=== PATIENT | male | born 1940 | race Caucasian/White ===

== ENCOUNTER 2016-05-20 09:36 | Day surgery (SDC) | payer MEDICARE ==
[~2016-05-20] VITALS: Ht 200.7 cm; Wt 118.8 kg
[2016-05-20] VITALS (10 sets, daily range): BP systolic 116–133; BP diastolic 68–85; PULSE 56–69; RESP 8–16; O2SAT 88–98
[~2016-05-20 09:36] MED LIST: ALBU8.5H2 INHALATION; BENZ-12 PO; CARB-182 AFFECT_EAR; CeFAZolin Inj 3 GM in IV Premix IV ONE; DIPH1TAB PO; GABA-502 PO; INSLIS SUBQ; INSU100I13 SUBQ; LEVO100T6 PO; LIDO700A6 TP; METF1000 PO; METO25TA6 PO; NITR0.4T6 SL; PANT40TA3 PO; SIMV40TA5 PO; TAMS0.4C98 PO
[2016-05-20] MEDS ORDERED: Dexamethasone 4 mg/mL Inj ONE (09:37)
[2016-05-20] MEDS ORDERED: fentaNYL-PF 50 mCg/mL 2 mL Inj ONE (09:37)
[2016-05-20] MEDS ORDERED: Propofol 10,000 mCg/mL 20 mL Inj ONE (09:37)
[2016-05-20] MEDS ORDERED: Ondansetron 2 mg/mL 2 mL Inj ONE (09:37)
[2016-05-20] MEDS: Lactated Ringer's 1,000 ML IV SCH ×2 (09:44→12:00)
--- NOTE | 2016-05-20 10:27 | PCM.HPANE ---
Patient Data Surgeon Admitting Provider: Attending Provider:Stanton Reyes DPM Primary Care Physician:Santiago Yap MD Other Provider:Mitch De La Paz Anesthesia Reason for Visit Right Foot Hammer Toe Ht/WT & BMI Height (Feet): 6 Height (Inches): 7 Weight (Kilograms): 118.8 Body Mass Index 29.00 Allergies Coded Allergies: phenazopyridine (Verified Allergy, Severe, Rash, 08/04/15) Past Anesthesia History Anesthesia History: Denies:: Abnormal Airway, Anesthesia Reactions, Difficult Intubation, Fam Anesthesia Reaction, Fam Malignant Hypertherm, Malignant Hyperthermia Diabetes History Hx Diabetes?: Yes Type of Diabetes: Type II Glycemic Control: Insulin & Oral Medication Current Bedside Blood Glucose: 160 MRSA MRSA: No Medications Blood Thinner: Aspirin Hypertension Medication: Yes Home Meds Incl Beta Yesy: Yes Date Beta Yesy Taken: May 19, 2016 (1999) Time Beta Yesy Taken: 20:00 Reported Medications Albuterol HFA (Proair HFA)8.5 Gm Hfa.aer.ad2 Puffs INHALATION Q4H #1 INHALER 05/17/16 Insulin Human Lispro (HumaLOG U100 Insulin Vial)100 Unit/Ml Unit1 Unit SUBQ DIRECTED PRN DM #1 VIAL Ref 0 Check blood sugars before meals and at bedtime. Use correction factor only before meals. Blood Sugar Lispro Correction: <151, 0 units; 151-175, 1 unit; 176-200, 2 units; 201-225, 3 units; 226-250, 4 units; 251-275, 5 units; 276-300, 6 units; 301-325, 7 units; 326-350, 8 units; 351-375, 9 units; 376-400, 10 units; >400, 12 units. 08/05/15 Benzonatate (Tessalon Perle)100 Mg Kpyiflp015 Mg PO TID PRN For Cough 07/20/15 Gabapentin 300 Mg Hmjpcqr467 Mg PO TID Ref 0 07/20/15 Carbamide Peroxide (Murine Ear Drops)6.5 % Drops15 Ml AFFECT_EAR 07/20/15 Diphenoxylate/Atropine 2.5-0.025 mg (Lomotil 2.5-0.025 mg)1 Each Tablet1 Tablet PO TID 06/02/15 Nitroglycerin SL 0.4 Mg Tab.subl0.4 Mg SL prn 11/27/14 Metformin (Glucophage)1,000 Mg Kwhgbt434 Mg PO BID Ref 0 11/27/14 Metoprolol Tartrate 25 Mg Ngeugg09 Mg PO BID 30 Days Ref 0 07/28/14 Lidocaine (Lidoderm)700 Mg Adh..patch1 Patch TP MORNING Ref 0 07/18/14 Levothyroxine 100 Mcg Nwullv796 Mcg PO DAILY For Thyroid Replacement Ref 0 07/01/[address] 40 Mg Tablet.dr40 Mg PO DAILY 30 Days Ref 0 07/01/14 Simvastatin 40 Mg Kpusdl57 Mg PO HS 30 Days Ref 0 07/01/14 Insulin Glargine (Lantus U100 Solostar Insulin Pen)100 Unit/1 Ml Insuln.pen28 Unit SUBQ Q12 Ref 0 07/01/14 Discontinued Reported Medications Tamsulosin (Flomax)0.4 Mg Capsule0.8 Mg PO DAILY Ref 0 12/12/14 History History of ENT Problems?: Yes HEENT History: Positive for:: Cataracts (ISCHEMIC OPTIC NEUROPATHY, PSEUDOPHAKIA) Sinus Problem (HX SINUS POLYP) TMJ Denies:: Abnormal Airway Difficult Intubation Dysphagia Hearing Problem (IMPACTED CERUMEN OF RIGHT EAR) Denture Type: Full- Upper Full- Lower Hx of Heart Problems?: Yes Cardiovascular History: Positive for:: Cardiac Surgery (S/P HEART CATH 02/2007 ) Edema (LE) Hypertension Denies:: AICD Atrial Fibrillation Chest Pain Congestive Heart Failure Heart Murmur (ECHO 06/2014) Irregular Heartbeat Pacemaker Valvular Heart Disease Hx of Respiratory Problem?: Yes Respiratory History: Positive for:: COPD Dyspnea (SOB/IFNCH) Denies:: Asthma Chest Surgery (S/P CHEST TUBE FOR PNEUMOTHORAX) Cough Emphysema Hemoptysis Pneumonia Tuberculosis Use of C-PAP Machine (ERROL + can't tolerate CPAP (FAILED TRIAL W/ NEW MASK)) Hx Neurologic Problems?: Yes Neurological History: Positive for:: Dizziness Denies:: Alzheimer's Disease CVA Dementia Headaches Multiple Sclerosis Parkinson's Disease Seizures Other Neurological Pertinent: RESTLESS LEG SYNDROME PERIODIC LIMB MOVEMENT Hx of GI Problems?: Yes Gastrointestinal History: Positive for:: Gastroesphageal Reflux (takes Pantoprazole) Heartburn (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 Pressure Ulcers Hx Musculoskeletal Problems?: Yes Musculoskeletal History: Positive for:: Osteoarthritis Denies:: Joint Replacement Hx of Psycho/Social Problems?: No Psycho Social History: Denies:: Anxiety Hx Depression Hx Surgeries?: Yes (port placement and removal, throat and nose bxs, TURP) Hx Any Other Health Problems?: Yes Other History: Positive for:: Cancer (Diffuse B Cell Lymphoma, in remission) Thyroid Disease (HYPO) Denies:: Endocrine Disease Hospitalization History Blood Transfusions: Denies:: Blood Transfusions Hx Diabetes: Yes Hx Alcohol Use: Yes (Occ)Hx Substance Use: No Smoking Status: Former Smoker Have You Smoked inLast 12 mo: No Stop/Bang S-Snoring: Do You Snore Loudly: No T-Tired: feel tired, fatigued: Yes O-Obsered: Observed not breath: No P-Blood Pressure: treated: Yes B- Body Mass Index > 35 kg/m2: No A- Age over 50: Yes N- Neck Large Circumference: No G- Gender Male: Yes ERROL Total Score: 4 ERROL Risk Assessment: High Risk, =/>3 Yes ERROL Category 4 OutPt Procedure: Yes Risk Assessment Category Category 1A: Patient has history of documented sleep apnea, and HAS NOT received any narcotic, sedative or anesthesia administration during this stay. Category 1B: Patient has history of documented sleep apnea, and HAS received any narcotic , sedative or anesthesia administration during this stay Category 2: Patient has SUSPECTED Obstructive Sleep Apnea, and HAS received any narcotic , sedative or anesthesia administration during this stay. Category 3: Patient has SUSPECTED Obstructive Sleep Apnea and HAS NOT received narcotic, sedative or anesthesia administration during this stay. Category 4: Outpatient in Procedural Areas with known sleep apnea or who screen positive for High Risk via the STOP/BANG questionnaire. Exam Exam Vital Signs Vital Signs Date Time Temp Pulse Resp B/P Pulse Ox O2 Delivery O2 Flow Rate FiO2 05/20/16 10:12 35.8 69 12 119/85 95 Room Air General Appearance: Alert, Oriented X3, Cooperative, No Acute Distress HEENT/AIRWAY: MP 2 Lungs: Clear to Auscultation, Normal Air Movement Heart: Exam Unremarkable, Regular Rate/Rhythm, No Murmurs/Rubs/Gallops Meds/Labs/Diagnostics Admission Meds Current Medications Lactated Ringer's (Lr) 1,000 ml @ 120 mls/hr Q8H20M IV Last administered on 09:44; Start 05/20/16 at 05:00; Stop 05/20/16 at 13:19 Plan Impression Patient chart reviewed, patient interviewed and anesthestic plan with risks, benefits, and alternatives discussed, and informed consent obtained. NPO Status: 05/24 2099 ASA Physical Status: ASA3 Severe Disease (ERROL risk, DM, CAD, GERD) Anesthetic Plan: GA Bene/Risks/Altern/Consents: Yes HP Complete Prior to Induction: Yes Ronnie Aguilar MD May 20, 2016 10:26 Ruddy Thomas MD May 25, 2016 08:24
[2016-05-20] MEDS ORDERED: Gentamicin 40 mg/mL 2 mL Inj IRRIGATION ONE (11:50)
[2016-05-20] MEDS ORDERED: Bupivacaine-MPF 0.5% 30 mL Inj INFILTRATE ONE (12:00)
[2016-05-20] MEDS ORDERED: Lactated Ringer's 1,000 ML IV SCH (12:19)
[2016-05-20] MEDS ORDERED: Lactated Ringer's 500 ML IV PRN (12:19)
[2016-05-20] MEDS ORDERED: EPHEDrine Sulfate 50 mg/mL Inj IVPUSH PRN (12:20)
[2016-05-20] MEDS ORDERED: HYDROmorphone 1 mg/mL Inj IVPUSH PRN (12:20)
[2016-05-20] MEDS ORDERED: Dexamethasone 4 mg/mL Inj IVPUSH PRN (12:20)
[2016-05-20] MEDS ORDERED: Ondansetron 2 mg/mL 2 mL Inj IVPUSH PRN (12:20)
[2016-05-20] MEDS ORDERED: MetoCLOpramide 5 mg/mL 2 mL Inj IVPUSH PRN (12:20)
[2016-05-20] MEDS ORDERED: fentaNYL-PF 50 mCg/mL 2 mL Inj IVPUSH PRN (12:20)
[2016-05-20] MEDS ORDERED: Phenylephrine 10,000 mCg/mL Inj IVPUSH PRN (12:20)
[2016-05-20] MEDS ORDERED: Lactated Ringer's 1,000 ML IV ONE (12:57)
[2016-05-20] MEDS ORDERED: oxyCODONE-Acetamin 5-325 mg Tablet PO PRN (13:30)
--- NOTE | 2016-05-20 13:30 | PCM.PODPO ---
Podiatry Operative Report Date of Service: May 20, 2016 Date of Service May 20, 2016 Pre Operative Diagnosis Hallux malleus deformity right foot Post Operative Diagnosis Same Procedure Arthrodesis interphalangeal joint right hallux with extensor hallucis longus tendon lengthening and elliptical excision of focal hyperkeratotic lesion overlying the first metatarsal phalangeal joint right foot Surgeon Surgeon: Stanton Reyes DPM Assistants: None Indication for Procedure Same Findings Same Details of Procedure Patient was placed on the table in the supine position and surgical timeout observed, upon initiation of general anesthesia by the anesthesiologist, the right forefoot was anesthetized utilizing 10 cc 0.5% Marcaine plain via a Bergeron block. A well-padded pneumatic ankle tourniquet was applied and the extremity prepped and draped in usual aseptic manner. The foot was exsanguinated utilizing an Esmarch bandage, the cuff was inflated and attention directed to the dorsum of the first metatarsal phalangeal joint and right hallux. Converging semi-elliptical longitudinally oriented incisions were made at the proximal aspect excising a focal hyperkeratotic lesion and the incision extended distally to the level of the epionychium. The incision was deepened via sharp and blunt dissection. Before meals slight lengthening of the extensor hallucis longus tendon was performed at the MPJ level. Attention was then directed to the IPJ level where a transverse tenotomy and capsulotomy was performed. There was noted to be ossification of the extensor tendon requiring use of a bone cutter to enter the joint. The articular surfaces was surfaces were resected utilizing oscillating saw and reciprocal planing utilized to assure good bone to bone coaptation. The cut bone surface was fenestrated utilizing a K wire. The arthrodesis site was fixated utilizing a single 3.5 cannulated partially threaded cancellus screw with excellent compression of the arthrodesis site noted and appropriate screw placement confirmed fluoroscopically. The site was copiously irrigated with antibiotic solution. The extensor tendon lengthening site was repaired with 3-0 FiberWire, and 3-0 Vicryl at the IPJ level. This continues tissues were reapproximated with 3-0 Vicryl and skin with 4-0 Prolene. The tourniquet was released normal perfusion returning promptly, mild postop bleeding was stayed with direct pressure. The forefoot was loaded the hallux was noted to be in rectus alignment with full sagittal plane range of motion at the first MPJ. An antibiotic ointment and Adaptic dressing was applied followed by a mildly compressive bandage. The patient was extubated uneventfully and left the operating suite in apparently satisfactory condition there were no complications Grafts, Implants: Implants-See Implant Record Complications There were no periprocedural complications identified. Condition Stable Anesthetic Administered: GA Drains: None Catheters: None Output, Estimated Blood Loss: 5 Blood Admin during surgery: No Surgical Cast or Splint: Post-op Boot Surgical Specimen Removed: No Specimen sent to Pathology: No Post Operative Plan Operative instructions have been reviewed, patient will return for recheck in 5 days Stanton Reyes DPM May 20, 2016 13:30
--- NOTE | 2016-05-25 08:21 | PCM.ANEP1 ---
Post Anesthesia Phase 1 PACU Phase 1 Assessment Date of Service: May 20, 2016 Anesthetic Administered: GA Level of Alertness: Awake, talking BREWSTER's with Equal Strength: Yes Pain: No Nausea or Vomiting: No Oxygen Delivery: Nasal Cannula Lungs: Clear to Auscultation, Normal Air Movement Dermatome Level: Full Sensation Ruddy Thomas MD May 25, 2016 08:21
--- NOTE | 2016-05-25 08:24 | PCM.ANEP2 ---
Post Anesthesia Evaluation ASA/CMS Post Anesthesia VS in Patient's Normal Range?: Yes Resp Stable; Airway Patent?: Yes CV Function & Hydration Stable: Yes Mental Status Recovered?: Yes Pain control Satisfactory?: Yes N/V Control Satisfactory?: Yes Ruddy Thomas MD May 25, 2016 08:24
== END 2016-05-20 23:59 | disposition home or self-care (01) ==
LOC: SAS 09:36
PROVIDERS: ATTEND Podiatrist
DX: M20.41 Other hammer toe(s) (acquired), right foot (principal); L84 Corns and callosities; E11.21 Type 2 diabetes mellitus with diabetic nephropathy; N18.2 Chronic kidney disease, stage 2 (mild); E78.5 Hyperlipidemia, unspecified; G25.81 Restless legs syndrome; N31.9 Neuromuscular dysfunction of bladder, unspecified; E03.9 Hypothyroidism, unspecified; G47.33 Obstructive sleep apnea (adult) (pediatric); N40.0 Benign prostatic hyperplasia without lower urinary tract symptoms; I25.10 Atherosclerotic heart disease of native coronary artery without angina pectoris; G58.9 Mononeuropathy, unspecified
CPT/HCPCS: 28288; 28755; 76000; J0690; J1100; J1580; J2250; J2405; J3010; J7120